=== PATIENT | male | born 1995 | race Hispanic/Latino ===

== ENCOUNTER 2021-11-24 23:14 | Emergency (ER) | payer SELFPAY ==
[2021-11-25 03:33] LABS: Bilirubin,Urine NEG (Negative); Blood,Urine NEG (Negative); Color,Urine Yellow (Yellow); Mucus,Urine FEW /HPF; Protein,Urine <15 mg/dL mg/dL (Negative); Urobilinogen,Urine < 2.0 mg/dL (<2.0)
[2021-11-25 03:42] LABS: Amphetamine Screen,Urine PRESUMPTIVE POSITIVE; Benzodiazepines Screen,Urine PRESUMPTIVE NEGATIVE; Cannabinoid Screen,Urine PRESUMPTIVE POSITIVE; Cocaine Screen,Urine PRESUMPTIVE NEGATIVE; Methadone Screen,Urine PRESUMPTIVE NEGATIVE; Opiate Screen,Urine PRESUMPTIVE NEGATIVE
[2021-11-25 04:01] LABS: Basophils # (Auto) 0.1 K/mm3 (0.0-0.1); Basophils % (Auto) 1.1 % (0.0-1.8); Eosinophils % (Auto) 0.2 % (0.0-4.3); Hematocrit 40.3 % (35.5-45.6); Hemoglobin 13.2 gm/dl (11.8-15.2); Lymphocytes # (Auto) 1.4 K/mm3 (1.2-5.4); Lymphocytes % (Auto) 16.4 % (13.4-35.0); Mean Corpuscular HGB Conc 33 % (32-34); Mean Corpuscular Volume 90 fl (84-94); Monocytes % (Auto) 11.9 % (0.0-7.3); Platelet Count 236 K/mm3 (140-440); Red Blood Count 4.51 M/mm3 (3.65-5.03); Red Cell Distribution Width 13.3 % (13.2-15.2)
[2021-11-25 04:18] LABS: BUN/Creatinine Ratio 28; Blood Urea Nitrogen 25 mg/dL (9-20); Calcium 9.1 mg/dL (8.4-10.2); Hemolysis Index 7
--- NOTE | 2021-11-25 06:01 | Emergency Department Report ---
ED Psych HPI - General Chief Complaint: Psych Stated Complaint: DRUG DETOX Time Seen by Provider: 11/25/21 04:02 Source: family, EMS Mode of arrival: Stretcher - Related Data Allergies Allergy/AdvReac Type Severity Reaction Status Date / Time No Known Allergies Allergy Unverified 11/25/21 00:28 ED Review of Systems ROS: Stated complaint: DRUG DETOX Other details as noted in HPI ED Past Medical Hx - Past Medical History Previous Medical History?: Yes Additional medical history: SUBSTANCE ABUSE - Surgical History Past Surgical History?: No - Social History Smoking Status: Current Every Day Smoker Substance Use Type: Methamphetamines ED Physical Exam - General Limitations: No Limitations General appearance: alert, anxious - Head Head exam: Absent: atraumatic - Eye Eye exam: Present: normal appearance, PERRL, EOMI - ENT ENT exam: Present: normal exam, normal orophraynx, mucous membranes moist - Neck Neck exam: Present: normal inspection. Absent: tenderness - Respiratory Respiratory exam: Present: normal lung sounds bilaterally. Absent: respiratory distress - Cardiovascular Cardiovascular Exam: Present: regular rate, normal rhythm - GI/Abdominal GI/Abdominal exam: Present: soft. Absent: distended, tenderness - Rectal Rectal exam: Present: deferred - Extremities Exam Extremities exam: Present: normal inspection - Back Exam Back exam: Present: normal inspection, full ROM - Psychiatric Psychiatric exam: Present: agitated, anxious - Skin Skin exam: Present: warm, dry ED Course Vital Signs 11/25/21 00:17 Temperature 98 F Pulse Rate 78 Respiratory 18 Rate Blood Pressure 126/78 O2 Sat by Pulse 100 Oximetry ED Medical Decision Making - Lab Data Result diagrams: 11/25/21 03:31 11/25/21 03:31 Reviewed with the drug screen positive for amphetamine. - Medical Decision Making The patient initially on presentation to the emergency department was noted to be quite anxious he was given some Ativan. Since then he has been sleeping comfortably and has been somewhat cooperative. Critical care attestation.: If time is entered above; I have spent that time in minutes in the direct care of this critically ill patient, excluding procedure time. ED Disposition Clinical Impression: Amphetamine abuse, Medical clearance for psychiatric admission Disposition: 30 STILL A PATIENT Condition: Stable
--- NOTE | 2021-11-25 09:45 | Consultation ---
History of Present Illness - Reason for Consult Consult date: 11/25/21 Reason for consult: mental health evaluation - History of Present Psychiatric Illness The patient is a 26 year old male with history of Amphetamine type substance use disorder. In my encounter with the patient, he is calm, alert and oriented x3. The patient reports that he came to the ED "for Mucus build up in my chest." The patient reports that he started using Meth at age 19 and last used about a day ago. He denies any current withdrawal symptoms. The patient denies any current suicidal/homicidal ideation and denies hallucinations. PAST PSYCHIATRIC HISTORY Diagnoses: ADHD Suicide attempts or Self-harm behavior: Denies Prior psychiatric hospitalizations: Yes Substance Abuse history:Meth, marijuana Previous psychiatric medications tried:Adderall Outpatient treatment: Unknown SOCIAL HISTORY Marital Status: Single Living Arrangements: Lives with cousin Employment Status: Unemployed Access to guns/weapons: Denies Education: GED History of abuse: Denies Legal History: Denies ROS Constitutional: Negative for weight loss EMT: Respiratory: Negative for cough or hemoptysis All other systems reviewed and are negative MENTAL STATUS EXAMINATION General Appearance: Dressed appropriately. Behavior: Calm and cooperative. Good eye contact. Mood: "ok" Affect: Congruent to stated mood Speech: Normal tone and pace Thought Process: Goal directed Thought Content: Reality oriented Suicidal Ideation:Denies Homicidal Ideation: Denies Hallucinations: Denies Delusions: None elicited Insight and Judgment: Limited Memory/Cognition: Limited Assessment and Plan (1) Amphetamine type substance use disorder Treatment Plan No medications prescribed Risks, benefits and alternatives of medications discussed with the patient, questions answered and consent obtained from patient. PSYCHOTHERAPY: Supportive psychotherapy provided MEDICAL: Per primary team DELIRIUM PRECAUTIONS: Please re-orient patient frequently, keep lights on during the day, and minimize benzodiazepines and opiates as these medications could worsen patient's confusion. 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 Finished Garment Inspector will provide patient with outpatient psychiatrist and substance abuse resources. Will follow. Thank you for the consult. Please contact with any questions and/or concerns. Case discussed with Dr. Jason who agrees with current disposition Medications and Allergies Medications and Allergies Allergies Allergy/AdvReac Type Severity Reaction Status Date / Time No Known Allergies Allergy Unverified 11/25/21 00:28 Mental Status Exam - Vital signs Last Vital Signs Temp 98 F 11/25/21 00:17 Pulse 78 11/25/21 00:17 Resp 18 11/25/21 00:17 BP 126/78 11/25/21 00:17 Pulse Ox 21 L 11/25/21 00:28 Results Result Diagrams: 11/25/21 03:31 11/25/21 03:31 Abnormal lab results 11/25/21 11/25/21 11/25/21 Range/Units 03:31 03:31 03:31 Ferry % (Auto) (0.0-7.3) % Ferry # (Auto) (0.0-0.8) K/mm3 Seg Neutrophils % (40.0-70.0) % Sodium 136 L (137-145) mmol/L Chloride 97.5 L (98-107) mmol/L BUN 25 H (9-20) mg/dL Salicylates < 0.3 L (2.8-20.0) mg/dL Acetaminophen 5.0 L (10.0-30.0) ug/mL 11/25/21 Range/Units 03:31 Ferry % (Auto) 11.9 H (0.0-7.3) % Ferry # (Auto) 1.0 H (0.0-0.8) K/mm3 Seg Neutrophils % 70.4 H (40.0-70.0) % Sodium (137-145) mmol/L Chloride (98-107) mmol/L BUN (9-20) mg/dL Salicylates (2.8-20.0) mg/dL Acetaminophen (10.0-30.0) ug/mL All other labs normal.
[2021-11-25 12:29] VITALS: BP 115/82
== END 2021-11-25 12:29 | disposition home or self-care (01) ==
LOC: EDSEX → ED 23:14
DX: Z04.6 Encounter for general psychiatric examination, requested by authority (principal); F15.10 Other stimulant abuse, uncomplicated; F17.200 Nicotine dependence, unspecified, uncomplicated; Z79.899 Other long term (current) drug therapy
CPT/HCPCS: 36415; 80048; 80307; 80320; 81001; 85025; 99284; G0480